=== PATIENT | male | born 1985 | race Caucasian/White ===

== ENCOUNTER 2017-11-15 20:21 | Emergency (ER) | payer MEDICAID ==
[2017-11-15 20:31] VITALS: TEMP 98.9; BMI 24.0
[2017-11-15] MEDS ORDERED: Oxycodone/Acetaminophen 5/325 mg Tab PO STA (20:50)
--- NOTE | 2017-11-15 21:02 | ED PDOC ---
Arrival/HPI - General Chief Complaint: Dental Pain Time Seen by Provider: 11/15/17 20:40 Historian: Patient - History of Present Illness Narrative History of Present Illness (Text): 11/15/17 20:50 32yo male with no pmhx who present with complaint of left left lower premolar toothache. States he saw a Dentist today who started a root canal and put a temporary filling. He states he was given Augmentin and Ibuprofen 800mg. States he took the Ibuprofen 800mg at 1900, without relieve. Denies fever, chlls, headache, any other complaint. Past Medical History - Provider Review Nursing Documentation Reviewed: Yes - Infectious Disease Hx of Infectious Diseases: None - Cardiac Hx Cardiac Disorders: No - Pulmonary Hx Respiratory Disorders: Yes Hx Asthma: Yes - Neurological Hx Neurological Disorder: No - HEENT Hx HEENT Disorder: No - Renal Hx Renal Disorder: No - Endocrine/Metabolic Hx Endocrine Disorders: No - Hematological/Oncological Hx Blood Disorders: No - Integumentary Hx Dermatological Disorder: No - Musculoskeletal/Rheumatological Hx Musculoskeletal Disorders: No - Gastrointestinal Hx Gastrointestinal Disorders: No - Genitourinary/Gynecological Hx Genitourinary Disorders: No - Psychiatric Hx Psychophysiologic Disorder: Yes Hx Depression: Yes Hx Substance Use: No Family/Social History - Physician Review Nursing Documentation Reviewed: Yes Family/Social History: Unknown Family HX Smoking Status: Never Smoked Hx Alcohol Use: No Hx Substance Use: No Allergies/Home Meds Allergies/Adverse Reactions: Allergies No Known Allergies Allergy (Verified 11/15/17 20:31) Home Medications: Home Meds Medication Instructions Recorded Confirmed Amoxicillin/Clavulanate [Augmentin 1 tab PO BID 11/15/17 11/15/17 875 MG-125 MG Tab] Escitalopram Oxalate [Lexapro] 5 mg PO DAILY 11/15/17 11/15/17 Fluticasone Propionate [Flonase] 2 spray NARA DAILY 11/15/17 11/15/17 Ibuprofen [Motrin Tab] 800 mg PO PRN PRN 11/15/17 11/15/17 Levocetirizine Dihydrochloride 10 mg PO DAILY 11/15/17 11/15/17 [Xyzal] Montelukast [Singulair] 10 mg PO DAILY 11/15/17 11/15/17 Review of Systems - Physician Review All systems were reviewed & negative as marked: Yes - Review of Systems Constitutional: Normal Eyes: Normal ENT: Other (Toothache) Respiratory: Normal Cardiovascular: Normal Gastrointestinal: Normal Genitourinary Male: Normal Musculoskeletal: Normal Skin: Normal Neurological: Normal Endocrine: Normal Hemo/Lymphatic: Normal Psychiatric: Normal Physical Exam Vital Signs Reviewed: Yes Vital Signs Temp Pulse Resp BP Pulse Ox 11/15/17 20:30 98.9 F 96 H 18 123/79 97 Temperature: Afebrile Blood Pressure: Normal Pulse: Regular Respiratory Rate: Normal Appearance: Positive for: Well-Appearing, Non-Toxic, Comfortable Pain Distress: None Mental Status: Positive for: Alert and Oriented X 3 - Systems Exam Head: Present: Atraumatic, Normocephalic Pupils: Present: PERRL Extroacular Muscles: Present: EOMI Conjunctiva: Present: Normal Mouth: Present: Moist Mucous Membranes, Normal Teeth (Filling noted on left sided lower premolar with mild over laying jaw swelling) Neck: Present: Normal Range of Motion Respiratory/Chest: Present: Clear to Auscultation, Good Air Exchange. No: Respiratory Distress, Accessory Muscle Use Cardiovascular: Present: Regular Rate and Rhythm, Normal S1, S2. No: Murmurs Abdomen: No: Tenderness, Distention, Peritoneal Signs Back: Present: Normal Inspection Upper Extremity: Present: Normal Inspection. No: Cyanosis, Edema Lower Extremity: Present: Normal Inspection. No: Edema Neurological: Present: GCS=15, CN II-XII Intact, Speech Normal Skin: Present: Warm, Dry, Normal Color. No: Rashes Psychiatric: Present: Alert, Oriented x 3, Normal Insight, Normal Concentration Disposition/Present on Arrival - Present on Arrival Any Indicators Present on Arrival: No History of DVT/PE: No History of Uncontrolled Diabetes: No Urinary Catheter: No History of Decub. Ulcer: No History Surgical Site Infection Following: None - Disposition Have Diagnosis and Disposition been Completed?: Yes Diagnosis: Pain, dental Disposition: HOME/ ROUTINE Disposition Time: 21:05 Patient Plan: Discharge Condition: STABLE Discharge Instructions (ExitCare): Dental Pain Additional Instructions: Follow up with your Dentist Return to ED for any new symptoms Prescriptions: oxyCODONE/Acetaminophen [Percocet 5/325 mg Tab] 1 ea PO Q6 #5 tab Referrals: [facility] at [facility] [place]] - Follow up with primary
[2017-11-15 22:03] VITALS: BP 127/89; PULSE 89; RESP 17; O2SAT 99
== END 2017-11-15 21:30 | disposition home or self-care (01) ==
LOC: ED 20:21 → MERGE 20:21 → ED 21:30
DX: K08.89 Other specified disorders of teeth and supporting structures (principal)